=== PATIENT | female | born 1945 | race Caucasian/White ===

== ENCOUNTER → 2016-09-09 | Outpatient (CLI) | payer OTHER | LOC: RAD 10:58 → SPEECH 10:58 → RAD 18:16 | DX: R13.19 Other dysphagia (principal); K21.9 Gastro-esophageal reflux disease without esophagitis; J34.2 Deviated nasal septum; K08.109 Complete loss of teeth, unspecified cause, unspecified class; R09.89 Other specified symptoms and signs involving the circulatory and respiratory systems; R49.0 Dysphonia; R05 Cough; Z79.82 Long term (current) use of aspirin ==